=== PATIENT | male | born 1975 | race African-American/Black ===

== ENCOUNTER 2017-09-02 11:19 | Emergency (ER) | payer SELFPAY ==
[~2017-09-02] VITALS: Ht 172.7 cm; Wt 80.0 kg
[~2017-09-02 11:19] MED LIST: ADVI200C9 PO
[2017-09-02 11:21] VITALS: BP 131/85; PULSE 67; RESP 16; TEMP 98.4; O2SAT 97
[2017-09-02] MEDS ORDERED: PENI500T PO (12:52)
--- NOTE | 2017-09-02 12:58 | PD ---
HPI Chief Complaint: ENT Complaint Time Seen by Provider: 12:32 Travel History International Travel<30 days: No Contact w/Intl Traveler<30days: No Traveled to known affect area: No History of Present Illness HPI 41-year-old male presents to the emergency room for evaluation of sore throat for the past 4 days. Patient states it feels like he is swallowing glass. States when he opens his mouth more than a few centimeters he has a lot of pressure and pain especially in the right back teeth. Feels like his gums are swollen. He took Advil for pain. Denies any drainage. Denies cough, congestion, fever, chills, nausea, vomiting. No chronic medical conditions or daily medications. PFSH Past Medical History Blood Disorders: No Heart Rhythm Problems: No Cancer: No Cardiac Catheterization: No Cardiovascular Problems: No High Cholesterol: No Congestive Heart Failure: No Diabetes: No Diminished Hearing: No Endocrine: No Genitourinary: No Immune Disorder: No Musculoskeletal: No Reproductive: No Past Surgical History Coronary Artery Bypass Graft: No Social History Alcohol Use: Yes (FEW BEERS MONTHLY) Tobacco Use: Yes (3 CIGARETTES / DAY) Substance Use: No Allergies-Medications (Allergen,Severity, Reaction): Coded Allergies: No Known Allergies (Verified , 05/15/15) Reported Meds & Prescriptions Reported Meds & Active Scripts Active Advil (Ibuprofen) 200 Mg Cap 600 Mg PO Q6H PRN available over the counter as 200mg tablets. take with food Review of Systems Except as stated in HPI: all other systems reviewed are Neg Physical Exam Narrative GENERAL: Well-nourished, well-developed male in no acute distress. Afebrile. Ambulatory. SKIN: Focused skin assessment warm/dry. HEAD: Normocephalic. EYES: No scleral icterus. No injection or drainage. NECK: Supple, trachea midline. No JVD or lymphadenopathy. ENT: Mucosa pink and moist. Moderate erythema without exudates or edema. No uvular edema. No uvular, palatal, or tonsillar deviation. Airway patent. Nasal turbinates appear normal without nasal blood, purulent drainage or septal hematoma. EARS: Bilateral pinnae and external canals appear within normal limits. Bilateral tympanic membranes without erythema, dullness or perforation. DENTAL: Good dentition overall. No loose or chipped teeth. No malocclusion. Large, slightly fluctuant mass in the back right molar. CARDIOVASCULAR: Regular rate and rhythm without murmurs, gallops, or rubs. RESPIRATORY: Breath sounds equal bilaterally. No accessory muscle use. Data Data Last Documented VS Vital Signs Date Time Temp Pulse Resp B/P (MAP) Pulse Ox O2 Delivery O2 Flow Rate FiO2 09/02/17 11:21 98.4 67 16 131/85 (100) 97 Room Air MDM Medical Decision Making Medical Screen Exam Complete: Yes Emergency Medical Condition: Yes Medical Record Reviewed: Yes Differential Diagnosis Abscess, pharyngitis, strep, upper respiratory infection Narrative Course 41-year-old otherwise healthy male presents to the emergency room for evaluation of sore throat for the past 4 days. Patient states it feels like he is swallowing glass. He cannot open his mouth more than 2 cm because of the sensation of swollen gums. Pain is worse on the right side. Pharynx is moderately erythematous without edema or exudates. Airway patent. There is a large, nonfluctuant mass adjacent to the right with some tooth that is tender to palpation. Likely dental abscess. No indication for drainage. No evidence of Nacho angina. Patient will be placed on penicillin and told to follow-up with a dentist or return for worsening symptoms. He understands and agrees to plan. Diagnosis Primary Impression: Dental abscess Referrals: Primary Care Physician Additional Instructions: Rest and drink plenty of fluids. Take Pen-Vee K as directed, until gone. Take ibuprofen with food as directed, as needed for pain. Follow-up with a primary care physician. Return to the emergency room for worsening symptoms. Med/Other Pt SpecificInfo: Prescription(s) given Scripts Penicillin V Potassium (Penicillin V Potassium) 500 Mg Tab 500 MG PO Q6H for Infection for 7 Days, #28 TAB 0 Refills Prov: Do Dodson DO 09/02/17 Disposition: 01 DISCHARGE HOME Condition: Stable Mei Handy Sep 02, 2017 12:58
== END 2017-09-02 13:06 | disposition home or self-care (01) ==
LOC: NEPK 11:19
DX: K04.7 Periapical abscess without sinus (principal); F17.210 Nicotine dependence, cigarettes, uncomplicated
CPT/HCPCS: 99283